=== PATIENT | female | born 2000 | race Two or more races ===

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

== ENCOUNTER → 2020-05-19 | Outpatient (CLI) | payer OTHER ==
[~2020-05-19] MED LIST: AMOX400S2 PO
--- NOTE | 2020-05-19 15:46 | RAD ---
EXAM: CERVICAL SPINE 5V. HISTORY: Upper extremity radiculopathy. COMPARISON: None. FINDINGS: Alignment is normal. Vertebral body heights are maintained, and no fractures are identified. Intervertebral disc heights are maintained. There is no prevertebral soft tissue swelling. The neural foramina are not completely profiled on the right. No clear osseous neural foraminal stenosis is identified. IMPRESSION: 1. No abnormality is appreciated by radiograph. MRI could further assess for stenosis if there is persistent concern. Electronically signed by: Johann Tamayo MD (05/19/2020 3:43 PM) [id number]
== END | disposition home or self-care (01) ==
LOC: RAD 10:40
PROVIDERS: ATTEND Family Medicine
DX: R20.0 Anesthesia of skin (principal); R20.2 Paresthesia of skin
CPT/HCPCS: 72050